=== PATIENT | male | born 1965 | race Caucasian/White ===

== ENCOUNTER 2020-08-17 01:49 | Day surgery (SDC) | payer OTHER ==
--- OUTSIDE RECORDS SUMMARY | 2020-08-17 13:54 | XMS REPORT | Continuity of Care Document ---
:1965 Author Organization [facility] t Address [address] [place] [address] Care Team Providers Name Role Phone CELIA Primary Care Physician Unavailable Luís VARGAS Attending Clinician CELIA Attending Clinician Unavailable CELIA Admitting Clinician Unavailable Problems This patient has no known problems. Allergies, Adverse Reactions, Alerts This patient has no known allergies or adverse reactions. Medications This patient has no known medications. Procedures This patient has no known procedures. Encounters Start End Encounter Admission Attending Care Care Encounter Source Date/Time Date/Time Type Type Clinicians Facility Department ID 2020-06-05 2020-06-05 Office LISET Staley [id number] 15:52:25 17:05:17 Visit Leslie Jurado [id number] Yvon [id number] Aqu[place] [id number] [facility] [address] Building 2018-02-02 2018-02-02 [facility] [id number] 19:12:00 19:12:00 [facility] Results Test Description Test Time Test Comments Results Result Comments Source Glycosylated Hemoglobin 2018-02-02 21:26:00 Test Item Value Reference Range Interpretation Comme nts HBA1c (test code = HBA1C) 7.4 % 4.8-5.9 H CBC with [id number] 20:56:00 Test Item Value Reference Range Interpretation Comments WBC (test code = WBC) 7.0 K/cumm 4.4-10.5 N RBC (test code = RBC) 5.41 M/cumm 4.10-5.70 N Hemoglobin (test code = HGB) 15.5 gm/dL 13.4-17.4 N Hematocrit (test code = HCT) 49.3 % 38.7-52.0 N MCV (test code = MCV) 91.1 fL 80-100 N MCH (test code = MCH) 28.6 pg 27.0-32.5 N MCHC (test code = MCHC) 31.4 g/dL 32.0-37.5 L RDW (test code = RDW) 13.2 % 11.5-14.5 N Platelet Count (test code = 221 K/cumm 140-440 N PLTCT) MPV (test code = MPV) 8.1 fL Diff Method (test code = DIFFM) Auto Neutrophil (test code = NEUT) 74.5 % 36-70 H Lymphocyte (test code = LYMPH) 14.8 % 12-44 N Monocyte (test code = MONO) 7.1 % 0-11 N Eosinophil (test code = EOS) 3.2 % 0-7 N Basophil (test code = BASO) 0.4 % 0-2 N Neutro Abs (test code = ANEUT) 5.2 K/cumm 1.6-7.4 N Lymph Abs (test code = ALYMPH) 1.0 K/cumm 0.5-4.6 N [place] Abs (test code = AMONO) 0.5 K/cumm 0.0-1.2 N Eos Abs (test code = AEOS) 0.23 K/cumm 0.00-0.74 N Baso Abs (test code = ABASO) 0.0 K/cumm 0.00-0.21 N Hypochromic (test code = HYPO) Slight Comprehensive Metabolic [id number] 20:51:00 Test Item Value Reference Range Interpretation Comments Sodium (test code = 144 mmol/L 135-145 N NA) Potassium (test 4.4 mmol/L 3.5-5.1 N code = K) Chloride (test code 100 mmol/L 98-105 N = CL) Carbon Dioxide 30 mmol/L 22-29 H (test code = CO2) Glucose (test code 77 mg/dL 70-115 N = GLU) Blood Urea Nitrogen 13 mg/dL 6-20 N (test code = BUN) Creatinine (test 0.9 mg/dL 0.7-1.2 N code = CREAT) Calcium (test code 9.6 mg/dL 8.3-10.5 N = CA) Prot Total (test 7.4 g/dL 6.4-8.3 N code = TP) Albumin (test code 4.6 g/dL 3.5-5.2 N = ALB) A/G Ratio (test 1.6 Ratio code = AGRATIO) Globulin (test code 2.8 2.9-3.1 L = GLOB) Bili Total (test 0.3 mg/dL 0.1-0.9 N code = TBIL) Alk Phos (test code 67 U/L 40-129 N = APHOS) AST (test code = 20 U/L 1-40 N AST) ALT (test code = 30 U/L 1-41 N ALT) BUN/Creatinine 14.4 Ratio (test code = BCRATIO) Anion Gap (test 14 mmol/L 7-16 N code = AGAP) Estimated GFR (test >60 eGFR (es timated code = GFR) mL/min/1.73m2 Glomerular Antoni tration Rate) is an est imated value,calculate d from the patient's s miki creatinine usin g the MDRD equation.I t is NOT the patient 's actual GFR. The eGFR provides a more clinicallyusefu l measure of kidn ey disease than se rum creatinine alone.This calculation flaco es sex and race into account, if the informationis provided. If th e race is not provided , and the patient isAfrican-Ameri can, multiply by 1.2 12. If sex is not prov ided, and thepatient is female, multipl y by 0.742. Results for patients <18 ye ars ofage have not been validated by th e MDRD study and shoul d be interpretedwith caution.eGFR Re sult Interpretation: eGFR > or = 60 is in t he Normal RangeeGF R < 60 may mean kidney diseaseeGFR < 1 5 may mean kidney failureRange s recommended by the National Kidney Foundation,http ://nkd ep.nih.gov Lipid [id number] 20:51:00 Test Item Value Reference Range Interpretation Comments Cholesterol (test 159 mg/dL 0-200 N code = CHOL) Triglycerides (test 125 mg/dL 9-200 N code = TRIG) HDL (test code = 48 mg/dL 40-60 N HDL) Chol/HDL (test code 3.3 Ratio 0.0-5.0 N = CHOLPHDL) LDL, Calculated 86 mg/dL 0-130 N (NOTE)RISK O F HEART (test code = LDLC) DISEASEPu blished by [place] Heart AssociationAnal yte Optim al Boderline Increased RiskC HOL <200 200-239 >240TRI G <150 150-199 >200HDL Male: >60 <40HDL Female: >60 <50 LDL < 100 130-15 9 >160 LDL NEAR OPTIMAL IS 100- 129 VLDL (test code = 25 mg/dL 5-40 N VLDL) LDL/HDL (test code = 2 LDLPHDL) Glycosylated [id number] 05:38:00 Test Item Value Reference Range Interpretation Comments HBA1c (test code = HBA1C) 6.3 % 4.8-5.9 H Lipid [id number] 23:07:00 Test Item Value Reference Range Interpretation Comments Cholesterol (test 144 mg/dL 0-200 N code = CHOL) Triglycerides (test 107 mg/dL 9-200 N code = TRIG) HDL (test code = 43 mg/dL 40-60 N HDL) Chol/HDL (test code 3.3 Ratio 0.0-5.0 N = CHOLPHDL) LDL, Calculated 80 mg/dL 0-130 N (NOTE)RISK O F HEART (test code = LDLC) DISEASEPu blished by [place] Heart AssociationAnal yte Optim al Boderline Increased RiskC HOL <200 200-239 >240TRI G <150 150-199 >200HDL Male: >60 <40HDL Female: >60 <50 LDL < 100 130-15 9 >160 LDL NEAR OPTIMAL IS 100- 129 VLDL (test code = 21 mg/dL 5-40 N VLDL) LDL/HDL (test code = 2 LDLPHDL) Comprehensive Metabolic [id number] 23:07:00 Test Item Value Reference Range Interpretation Comments Sodium (test code = 141 mmol/L 135-145 N NA) Potassium (test 4.0 mmol/L 3.5-5.1 N code = K) Chloride (test code 101 mmol/L 98-105 N = CL) Carbon Dioxide 31 mmol/L 22-29 H (test code = CO2) Glucose (test code 124 mg/dL 70-115 H = GLU) Blood Urea Nitrogen 14 mg/dL 6-20 N (test code = BUN) Creatinine (test 0.9 mg/dL 0.7-1.2 N code = CREAT) Calcium (test code 9.7 mg/dL 8.3-10.5 N = CA) Prot Total (test 7.0 g/dL 6.4-8.3 N code = TP) Albumin (test code 4.3 g/dL 3.5-5.2 N = ALB) A/G Ratio (test 1.6 Ratio code = AGRATIO) Globulin (test code 2.7 2.9-3.1 L = GLOB) Bili Total (test 0.3 mg/dL 0.1-0.9 N code = TBIL) Alk Phos (test code 70 U/L 40-129 N = APHOS) AST (test code = 15 U/L 1-40 N AST) ALT (test code = 23 U/L 1-41 N ALT) BUN/Creatinine 15.6 Ratio (test code = BCRATIO) Anion Gap (test 9 mmol/L 7-16 N code = AGAP) Estimated GFR (test >60 eGFR (es timated code = GFR) mL/min/1.73m2 Glomerular Antoni tration Rate) is an est imated value,calculate d from the patient's s miki creatinine usin g the MDRD equation.I t is NOT the patient 's actual GFR. The eGFR provides a more clinicallyusefu l measure of kidn ey disease than se rum creatinine alone.This calculation flaco es sex and race into account, if the informationis provided. If th e race is not provided , and the patient isAfrican-Ameri can, multiply by 1.2 12. If sex is not prov ided, and thepatient is female, multipl y by 0.742. Results for patients <18 ye ars ofage have not been validated by th e MDRD study and ese d be interpretedwith caution.eGFR Re sult Interpretation: eGFR > or = 60 is in t he Normal RangeeGF R < 60 may mean kidney diseaseeGFR < 1 5 may mean kidney failureRange s recommended by the National Kidney Foundation,http ://nkd ep.nih.gov CBC with [id number] 22:51:00 Test Item Value Reference Range Interpretation Comments WBC (test code = WBC) 6.4 K/cumm 4.4-10.5 N RBC (test code = RBC) 4.84 M/cumm 4.10-5.70 N Hemoglobin (test code = HGB) 14.0 gm/dL 13.4-17.4 N Hematocrit (test code = HCT) 43.9 % 38.7-52.0 N MCV (test code = MCV) 90.9 fL 80-100 N MCH (test code = MCH) 28.9 pg 27.0-32.5 N MCHC (test code = MCHC) 31.8 g/dL 32.0-37.5 L RDW (test code = RDW) 13.3 % 11.5-14.5 N Platelet Count (test code = 211 K/cumm 140-440 N PLTCT) MPV (test code = MPV) 8.7 fL Diff Method (test code = DIFFM) Auto Neutrophil (test code = NEUT) 72.6 % 36-70 H Lymphocyte (test code = LYMPH) 17.1 % 12-44 N Monocyte (test code = MONO) 6.3 % 0-11 N Eosinophil (test code = EOS) 3.6 % 0-7 N Basophil (test code = BASO) 0.3 % 0-2 N Neutro Abs (test code = ANEUT) 4.7 K/cumm 1.6-7.4 N Lymph Abs (test code = ALYMPH) 1.1 K/cumm 0.5-4.6 N [place] Abs (test code = AMONO) 0.4 K/cumm 0.0-1.2 N Eos Abs (test code = AEOS) 0.23 K/cumm 0.00-0.74 N Baso Abs (test code = ABASO) 0.0 K/cumm 0.00-0.21 N
--- OUTSIDE RECORDS SUMMARY | 2020-08-17 13:54 | XMS REPORT | Summary of Care ---
:1965 Author Organization [facility] Address [address] [place] [id number] Care Team Providers Name Role Phone Solis Patiño MD Primary Care Provider Reason for Visit Reason Comments Follow-up Diabetes Mellitus II Encounter Details Date Type Department Care Team Description 06/05/2020 Office Visit [facility] Leslie Staley MD Type 2 diabetes, uncontrolled, with neur opathy (Primary Dx); Endocrinology- [facility] Morbid o besity with BMI of 45.0-49.9, adult; [facility] Dyslipidemia; [address] [place] [address] Ess[address] hypertension; Drive, [address] [address] [place]urop[place], [place] [phone] [address] [phone] Allergies No Known Allergiesdocumented as of this encounter (statuses as of 06/29/2020) Medications Medication Sig Dispensed Refills Start End Date Status Date metoprolol Take 1 Tab by 0 Activ e tartrate mouth 2 (two) 3 (LOPRESSOR) 100 mg times daily. tabletIndications: Essential hypertension, benign blood sugar before meals. 0 Acti ve diagnostic 3 (FREESTYLE LITE STRIPS) stripIndications: Type II or unspecified type diabetes mellitus without mention of complication, uncontrolled aspirin 325 mg Take 325 mg by 0 Active tablet mouth daily. Amlodipine-Olmesar Take by 0 A ctive lindsay (KADEEM) 10-40 mouth. mg per tablet tadalafil (CIALIS) Take 5 mg by 0 Active 5 mg tablet mouth as needed for Erectile dysfunction. acetaminophen-code Take 1 tablet 0 Active ine 300-30 mg by mouth every tablet 6 (six) hours as needed for Pain (scale 1-3). Insulin [place], Use twice 200 Each 1 Act dana Disposable, (BD daily with 9 ULTRAFINE III MINI Victoza and PEN) 31 gauge x Cleo 01/01" NdleIndications: Type 2 diabetes, uncontrolled, with neuropathy atorvastatin 80 mg Take 1 tablet 90 tablet 3 Active tabletIndications: by mouth at 9 Dyslipidemia bedtime. pregabalin Take 1 capsule 180 capsule 1 Ac tive (LYRICA) 100 mg by mouth 2 0 capsuleIndications (two) times : Neuropathy, Type daily. 2 diabetes, uncontrolled, with neuropathy empagliflozin Take 1 tablet 90 tablet 3 Ac tive (JARDIANCE) 25 mg by mouth 0 TabIndications: daily. Type 2 diabetes, uncontrolled, with neuropathy insulin degludec inject 70 42 mL 1 Act dana (TRESIBA FLEXTOUCH Units under 0 U-200) 200 unit/mL the skin at (3 mL) bedtime. InPnIndications: Type 2 diabetes, uncontrolled, with neuropathy metformin ER 500 TAKE 1 TABLET 270 tablet 3 Active mg 24 hr 3 TIMES A 0 tabletIndications: DAYBEFORE Type 2 diabetes, MEALS uncontrolled, with neuropathy pioglitazone 15 mg Take 1 tablet 90 tablet 3 Active tabletIndications: by mouth 0 Type 2 diabetes, daily. uncontrolled, with neuropathy semaglutide inject 1 mg 9 mL 2 Active (OZEMPIC) 1 under the skin 0 mg/dose (2 mg/1.5 weekly. mL) PnIjIndications: Type 2 diabetes, uncontrolled, with neuropathy pioglitazone 15 mg Take 1 tablet 90 tablet 3 0 Discontinued tabletIndications: by mouth 0 20 ( Reorder) Type 2 diabetes, daily. uncontrolled, with neuropathy empagliflozin Take 1 tablet 90 tablet 3 06/05/20 Di scontinued (JARDIANCE) 25 mg by mouth 0 20 (R eorder) TabIndications: daily. Type 2 diabetes, uncontrolled, with neuropathy metformin ER 500 TAKE 1 TABLET 270 tablet 1 06/05/20 Discontinued mg 24 hr 3 TIMES A 0 20 (Reorder) tabletIndications: DAYBEFORE Type 2 diabetes, MEALS uncontrolled, with neuropathy insulin degludec inject 90 45 mL 1 06/05/20 Dis continued (TRESIBA FLEXTOUCH Units under 0 20 (Reorder) U-200) 200 unit/mL the skin at (3 mL) bedtime. InPnIndications: Type 2 diabetes, uncontrolled, with neuropathy semaglutide inject 1 mg 3 mL 3 06/05/20 Discon tinued (OZEMPIC) 1 under the skin 0 20 (Re order) mg/dose (2 mg/1.5 weekly. 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 documented as of this encounter Last Filed Vital Signs Vital Sign Reading Time Taken Comments Blood Pressure 149/88 06/05/2020 4:20 PM CDT Pulse 65 06/05/2020 4:20 PM CDT Temperature - - Respiratory Rate 16 06/05/2020 4:20 PM CDT Oxygen Saturation - - Inhaled Oxygen Concentration - - Weight 171 kg (377 lb) 06/05/2020 4:20 PM CDT Height 190.5 cm (6' 3") 06/05/2020 4:20 PM CDT Body Mass Index 47.12 06/05/2020 4:20 PM CDT documented in this encounter Patient Instructions Patient Leslie Rodriguez MD - 06/05/2020 4:00 PM CDTReduced Tresiba to 70 units daily , you can further reduce to 65 units daily in a week if sugar continue <100 consistently in a week Continue metformin, Jardiance, pioglitazone and resume Ozempic Target for sugar control Morning Fasting 90-130 2 hour after meal 120-180 documented in this encounter Progress Notes Leslie Staley MD - 06/05/2020 4:00 PM CDT chief complaint: Type 2 diabetes mellitus- follow up HPI Patient is a 55 year old /White male who is here today for Diabetes Mellitus Type 2. Patient's diabetes is complicated by atherogenic diet, diabetic ulcer/wound, hyperlipidemia, hypertension , macrovascular complications: S/P Cerebrovascular Accident, Coronary Artery Disease and S/P 4 VesselCoronary Artery Bypass Graft , neuropathy: Peripheral and lower extremity, obesity and retinopathy: nonproliferative. SONNY was in 10/2019 with A1C at 7.8% and was started on Ozempic 1mg weekly. Patient was advised to continue Actos 15 mg, Metformin ER 500 mg tid (c/o constipation), Toujeo 90 units at bedtime (usually takes 70 units), Jardiance 25 mg daily. Started Ozempic after SONNY, stopped for 2 months but is wanting to start again. He has not been taking victoza or Saxenda since due to insurance not covering. Glucose readings: 1x/day fasting AM Fastin-90 Diet: Chicken twice a week, shrimp, fish. No fried foods. Grilled. Exercise: Mildly active H/o CAD however no h/o CHF. States stress test and cath previously showed mild CAD and he was started on Plavix at that time. Follows up with his course developer in 2 weeks. Following issues managed by cardiology/PCP: Dyslipidemia: Takes Lipitor 80 mg daily Neuropathy: Takes gabapentin 400 mg tid. 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 Last HCT normal 03/2018 scanned DIABET[facility] HEALTH MAINTENANCE Last Ophthalmology visit was 02/2020, stable retinopathy with no active bleeding Patient on FRANKC/ARB therapy - Yes Patient on ASA therapy - Yes. Patient on Statin/Fibrate therapy - Yes. Flu shot: Yes received Patient instructed about daily feet exams, last sensation exam was 06/05/2020 Patient has received Nutrition/Diet/Diabetes Education on today. HISTORY Past Medical History: Diagnosis Date CAD (coronary artery disease) DM (diabetes mellitus) Dyslipidemia HTN (hypertension) Skin cancer of arm Stroke 2009 Past Surgical History: Procedure Laterality Date AMPUTATION TOE,I-P JT 2 and 3 toe CABG, ARTERIAL, FOUR+ 2014 Family History Problem Relation Age of Onset Other - see comments Unknown adopted Social History Socioeconomic History Marital status: Single Spouse name: Not on file Number of children: Not on file Years of education: Not on file Highest education level: Not on file Occupational History Not on file Social Needs Financial resource strain: Not on file Food insecurity Worry: Not on file Inability: Not on file Transportation needs Medical: Not on file Non-medical: Not on file Tobacco Use Smoking status: Light Tobacco Smoker Substance and Sexual Activity Alcohol use: Not on file Drug use: Not on file Sexual activity: Not on file Lifestyle Physical activity Days per week: Not on file Minutes per session: Not on file Stress: Not on file Relationships Social connections Talks on phone: Not on file Gets together: Not on file Attends anglican service: Not on file Active member of club or organization: Not on file Attends meetings of clubs or organizations: Not on file Relationship status: Not on file Intimate partner violence Fear of current or ex partner: Not on file Emotionally abused: Not on file Physically abused: Not on file Forced sexual activity: Not on file Other Topics Concern Not on file Social History Narrative Not on file REVIEW OF SYSTEMS Constitutional: +weight gain, denies fatigue and hair loss Eyes: denies blurry vision, denies diplopia and denies pain. Neck: denies pain, denies swollen glands Cardiovascular: denies chest pain , denies irregular pulse and denies palpitations. Respiratory: denies dyspnea on exertion and denies shortness of breath. Gastrointestinal: denies abdominal pain, denies constipation and denies diarrhea. Genitourinary: denies burning and denies dysuria. Musculoskeletal: denies back pain, denies muscle pain and denies weakness. Skin: denies dry skin and denies hair changes. Neuro: +numbness, denies tingling and denies tremor. Psych: negative. Endocrine: denies goiter, denies hair loss, denies intolerance to cold, denies intolerance to heat, denies polydipsia, denies polyphagia and denies polyuria. PHYSICAL EXAM BP (!) 149/88 | Pulse 65 | Resp 16 | Ht 6' 3" (1.905 m) | Wt 377 lb (171 kg) | BMI 47.12 kg/m General: alert, oriented times three, no apparent distress, appearing age appropriate. Skin: skin color and turgor are normal Head: normocephalic, no masses, lesions, tenderness or abnormalities. Eyes: anicteric sclera, pupils are equally round and reactive to light. Neck: +acanthosis nigricans Thyroid: normal size and consistency to palaption Lungs: good diaphragmatic excursion, lungs clear to auscultation bilaterally. Heart: regular rate and rhythm, no murmurs, gallops or rubs. Abdomen: abdomen soft, non-tender, normal active bowel sounds, + obese. Neuro: unremarkable without focal findings. Extremities/Musculoskeletal: no cyanosis, no edema . Sensory exam of the foot is abnormal. Monofilament exam with sensation Right: 0/5, Left: 0/5. Amputated 2nf and 3rd toe on left foot. Lesions absent. Ulcers Present Left Foot on side of 5th toe. Peripheral pulses present 1+. CREATININE (mg/dL) Date Value 11/16/2019 1.00 CHOL (mg/dL) Date Value 11/16/2019 186 HDL (mg/dL) Date Value 11/16/2019 52 LDL CHOL (mg/dL) Date Value 11/16/2019 111 TRIG (mg/dL) Date Value 11/16/2019 114 MICROAL/CR (mg/g of creatinine) Date Value 11/16/2019 5 POCT HBA1C (%) Date Value 11/16/2019 7.8 02/14/2019 7.7 ASSESSMENT 1. Type 2 diabetes, uncontrolled, with neuropathy -A1C (target=6-7%): 7.7(02/04) -->7.8(11/07) --> 6.6(06/07) -glucose range: AM fasting at target per patient, he may have post prandial hyperglycemia - without hypoglycemia -complication: neuropathy retinopathy nephropathy macrovascular: CAD CVA -medication limitation: Discussed recent reports of increased amputation with Invokana- . Discussed Jardiance, Farxiga and Invokana are all in the same class of SGLT2 inhibitors medications and increased amputation could be a class effect. Patient would like to continue Jardiance. -diet: semicompliant -exercise: limited by feet pain Plan -reinterated to check glucose BID alternating fasting and 2 hours post meals -urged compliance with diet/exercise - POCT HEMOGLOBIN A1C TEST - pioglitazone 15 mg tablet; Take 1 tablet by mouth daily. Dispense: 90 tablet; Refill: 3 - empagliflozin (JARDIANCE) 25 mg Tab; Take 1 tablet by mouth daily. Dispense: 90 tablet; Refill: 3 - metformin ER 500 mg 24 hr tablet; TAKE 1 TABLET 3 TIMES A DAYBEFORE MEALS Dispense: 270 tablet; Refill: 1 - pregabalin (LYRICA) 100 mg capsule; Take 1 capsule by mouth 2 (two) times daily. Dispense: 180 capsule; Refill: 1 - insulin degludec (TRESIBA FLEXTOUCH U-200) 200 unit/mL (3 mL) InPn; inject 70 Units under the skinat bedtime. Dispense: 45 mL; Refill: 1 - semaglutide (OZEMPIC) 1 mg/dose (2 mg/1.5 mL) PnIj; inject 1 mg under the skin weekly. Dispense: 3 mL; Refill: 3 PATIENT INSTRUCTIONS Reduced Tresiba to 70 units daily, you can further reduce to 65 units daily in a week if sugar continue <100 consistently in a week Continue metformin, Jardiance, pioglitazone and resume Ozempic Target for sugar control Morning Fasting 90-130 2 hour after meal 120-180 2. Morbid obesity with BMI of 45.0-49.9, adult Comment: H/o CAD- avoid Phentermine Side effects with COntrave Consider belviq in future Plan: Restart ozempic as above 3. Neuropathy - pregabalin (LYRICA) 100 mg capsule; Take 1 capsule by mouth 2 (two) times daily. Dispense: 180 capsule; Refill: 1 4. Dyslipidemia Comment: at goal. Managed by cardiology Plan: atorvastatin 80 mg tablet 5. Essential hypertension Followed by cardiology Patient seen and discussed with Dr. Leslie Saenz [facility] PA-S2 I personally performed and/or ordered the services described in this documentation made by Ms SaenzPA student in my presence, and it is both accurate and complete. All medical record entries made byMs Saenz were at my direction and personally dictated by me. I have reviewed the chart and made mod ification. I agree that the record accurately reflects my personal performance of the history, physical exam, assessment and plan. Leslie Staley MD Division of Endocrinology and Metabolism Jewell Connelly LVN - 06/05/2020 4:00 PM CDT Last Two A1C Results ([facility], POCT, [facility]) Recent Labs 11/16/19 06/05/20 [id number] 7.8 6.6* Kai Felizectronically signed by Jewell Bradley LVN at 06/29/2020 1:03 AM CDTdocumented in this encounter Plan of Treatment Date Type Specialty Care Team Description 11/06/2020 Office Visit Endocrinology Diabetes & Willis Staley MD Metabolism [facility] [place], [place] [id number] Health Maintenance Due Date Last Done Comments HEPATITIS C (HCV) SCREEN 1965 Depression Screening 1975 DTaP,Tdap,and Td Vaccines (1 1982 - Tdap) COLON CANCER SCREENING 2013 ANNUAL FIT/FOBT COLON CANCER SCREENING FIT 2013 DNA EVERY 3 YEARS COLON CANCER SCREENING 2013 SIGMOIDOSCOPY EVERY 5 YEARS COLONOSCOPY 2013 Colorectal Cancer Screening 2013 Zoster Recombinant Vaccine 2013 (SHINGRIX) (1 of 2) INFLUENZA VACCINE (#1) 2020 CREATININE (SERUM) 11/16/2020 11/16/2019 LDL-C 11/16/2020 11/16/2019 URINE MICROALBUMIN 11/16/2020 11/16/2019 HgA1C 12/06/2020 06/05/2020, 11/16/2019, 02/14/2019, Additional history exists EYE EXAM 03/15/2021 03/15/2020 FOOT EXAM 06/05/2021 06/05/2020, 06/05/2020, 11/16/2019, Additional history exists PNEUMOCOCCAL 0-64 YEARS Aged Out No longe r eligible COMBINED SERIES based on patient 's age to complete this topic documented as of this encounter Procedures Procedure Name Priority Date/Time Associated Diagnosis Comme nts POCT HEMOGLOBIN A1C Routine 06/05/2020 Type 2 diabetes, Resu lts for this TEST uncontrolled, with procedure are in the neuropathy results section . documented in this encounter Results POCT HEMOGLOBIN A1C TEST (06/05/2020) Pathologist Sig nature POCT HBA1C 6.6 (A) 4 - 6 % Specimen Blood - CAPILLARY documented in this encounter Visit Diagnoses Diagnosis Type 2 diabetes, uncontrolled, with neur opathy - Primary Type II or unspecified type diabetes rickie litus with neurological manifestations, uncontrolled Morbid obesity with BMI of 45.0-49.9, ad ult Dyslipidemia Other and unspecified hyperlipidemia Essential hypertension Unspecified essential hypertension Neuropathy Mononeuritis of unspecified site documented in this encounter Guarantor Name Account Type Relation to Date of Phone Bill ing Patient Address Ana Kauffman Personal/Family Self [phone] (Home) [place] [phone] (Work) documented as of this encounter
--- OUTSIDE RECORDS SUMMARY | 2020-08-17 13:54 | XMS REPORT | Summary of Care ---
:1965 Author Organization [facility] Address [address] [place] [address] Care Team Providers Name Role Phone Solis Patiño MD Primary Care Provider Reason for Visit Reason Comments Follow-up Diabetes Mellitus II Encounter Details Date Type Department Care Team Description 06/05/2020 Office Visit [facility] Leslie Staley MD Type 2 diabetes, uncontrolled, with neur opathy (Primary Dx); Endocrinology- [facility]0 [facility] Morbid o besity with BMI of 45.0-49.9, adult; [facility] Dyslipidemia; [address] [place] [address] Essenti al hypertension; Drive, [address] [address] Neurop[place], [place] [phone] [address] [phone] Allergies No Known Allergiesdocumented as of this [...] as needed for Pain (scale 1-3). Insulin [place], Use twice 200 Each 1 Act dana [...] compli cations 10/31/2008 Overview: ICD10 Diagnosis Term [facility] Nurse Utility documented as of this encounter (statuses [...] at that time. Follows up with his fringe maker in 2 weeks. Following issues managed by [...] retinopathy with no active bleeding Patient on FRANCK/ARB therapy - Yes Patient on ASA therapy [...] file Gets together: Not on file Attends hinduism service: Not on file Active member of [...] seen and discussed with Dr. Leslie Saenz [facility] PA-S2 I personally performed and/or ordered [...] MD Division of Endocrinology and Metabolism Jewell Connelyl LVN - 06/05/2020 4:00 PM CDT Last Two A1C Results ([facility], POCT, [facility]) Recent Labs 11/16/19 06/05/20 [id number] 7.8 6.6* Kai Felizectronically signed by Jewell Bradley LVN at 06/29/2020 1:03 AM CDTdocumented in this encounter Plan of Treatment Date Type Specialty Care Team Description 11/06/2020 Office Visit Endocrinology Diabetes & Willis Staley MD Metabolism [facility] [place], [place] [address] Health Maintenance Due Date Last Done Comments [...] [phone] (Home) [place] [phone] (Work) documented as of this encounter
[2020-08-17 14:49] LABS: Basophils % 0.8 % (0-1.3); Hematocrit 43.4 % (39.6-49.0); Lymphocytes % 16.3 % (15.3-44.8); MPV 8.1 fL (7.6-11.3); RBC Red Blood Cell Count 5.03 M/uL (4.33-5.43)
--- NOTE | 2020-08-17 14:51 | RAD REPORT ---
EXAM DESCRIPTION: Heaven aTng (2 Views)08/17/2020 2:27 pm CLINICAL HISTORY: Preop for leg debridement. COMPARISON: 2017 FINDINGS: The lungs appear clear of acute infiltrate. The heart is normal size. Postsurgical changes involve the chest. IMPRESSION: No acute abnormalities displayed
[2020-08-17 14:52] LABS: Protime INR 0.97
[2020-08-17] MEDS ORDERED: NA CHLORIDE 0.9% 1,000 ML ONE (14:58)
[2020-08-17] MEDS ORDERED: propofoL 200 MG/20 ML VIAL IV ONE (15:19)
[2020-08-17] MEDS ORDERED: FENTANYL CITR 100 MCG/2 ML ONE (15:20)
[2020-08-17] MEDS ORDERED: MIDAZOLAM HCL 2 MG/2 ML INJ ONE (15:21)
[2020-08-17] MEDS ORDERED: LIDOCAINE 2% MPF 5 ML VIAL ONE (15:21)
[2020-08-17] MEDS ORDERED: CEFAZOLIN/SWI 1gm 1 GM/10 ML SYR ONE (15:39)
--- NOTE | 2020-08-17 15:40 | P.BOP ---
Preoperative diagnosis: infected leg hematoma with abscess Postoperative diagnosis: same Primary procedure: Evacuation of infected hematoma with drainage of abscess Estimated blood loss: <10cc Specimen: culture Findings: as above Anesthesia: General Drain(s): Other (delores drain) Transferred to: Recovery Room Condition: Good
[2020-08-17] MEDS ORDERED: ONDANSETRON 4 MG/2 ML VIAL ONE (15:50)
[2020-08-17] MEDS ORDERED: EPHEDRINE SULF 50 MG/ML VIAL ONE (15:55)
[2020-08-17] MEDS ORDERED: NS 0.9% VIAL 10 ML ONE (16:00)
[2020-08-17] MEDS ORDERED: Phenylephrine HCl 10 MG/ML 1 ML VIAL ONE (16:00)
[2020-08-17] MEDS ORDERED: MORPHINE 4 MG/ML SYR ONE (16:24)
[2020-08-17] MEDS ORDERED: TRAMADOL HCL 50 MG TAB ONE (17:00)
[2020-08-17 17:20] VITALS: BP 124/84; TEMP 98.4; O2SAT 96
--- NOTE | 2020-08-17 23:30 | OP ---
Date of Procedure: 08/17/2020 Surgeon: Jose Stiles MD Preoperative Diagnoses: Infected left leg hematoma, status post contusion with cellulitis and absces s. Postoperative Diagnoses: Infected left leg hematoma, status post contusion with cellulitis and absce ss. Procedure: Evacuation of infected hematoma with drainage of an abscess, left leg. Estimated Blood Loss: Less than 10 cc plus the patient has about 50 cc of clotting blood in the area . Specimens: Cultures were obtained. Drains: Brit was placed. Indications: This is the case of a 55-year-old patient with history of blood thinners, his leg devel oped large hematoma. The patient has history of venous stasis disease, so the area had some pressure on it, now is read, diagnosed with infected hematoma and he was booked in OR immediately for drainag e. Benefits, alternatives, and risks were fully explained, which include, but not limited to infecti on, bleeding, damage to adjacent structures, anesthesia complication, nonhealing wound, SC, and even . He also understands this may not relieve symptoms. He might need more than one surgical inte rvention. He understood and signed a consent. Procedure In Detail: The area of concern was marked by me and the patient in the holding room. The patient was brought to the operating room and placed in supine position. Anesthesia was done without complication. Left leg was prepped and draped in sterile fashion. Time-out was called. Local anes thesia was applied followed by sharp incision of the skin. Immediately, we found a cavity with infec karlie hematoma, so we took cultures of that area, irrigated the area profusely, obtained hemostasis and then put a Brit over the area and closed with sterile dressings on top. We put an Dre wrap from the foot all the way down to the below the knee. The patient tolerated the procedure well. The haresh ent in his way to recovery in stable condition. The area of concern is about 10 x 10 cm. Disposition: Home. Plan: Keep this intact until Thursday. On Thursday, he may remove the outer dressings and pull the Penr ose drains out and then immediately replace it with 4 x 4 and the Dre wrap from the foot all the way to the knee. The patient's family will help him with that. Medications: The patient has some Ultram. We are going to refill the Ultram once again for pain con trol. We asked him to have the leg elevated. The patient is already on antibiotics. ALONSO/JULES Voice ID: [id number] Report ID: [id number]
== END 2020-08-17 17:15 | disposition home or self-care (01) ==
LOC: OR 01:49
PROVIDERS: ATTEND Surgery
PROC: 0H9LXZX Drainage of Left Lower Leg Skin, External Approach, Diagnostic (ICD-10-PCS; principal; 2020-08-17 16:00)
DX: S80.12XA Contusion of left lower leg, initial encounter (principal); L03.116 Cellulitis of left lower limb; L02.416 Cutaneous abscess of left lower limb; E11.9 Type 2 diabetes mellitus without complications; I10 Essential (primary) hypertension; E66.01 Morbid (severe) obesity due to excess calories; E78.00 Pure hypercholesterolemia, unspecified; I51.9 Heart disease, unspecified; L08.9 Local infection of the skin and subcutaneous tissue, unspecified
CPT/HCPCS: 93005; 87070; 85025; 36415; 87205; 85610; 82947 ×2; 85730; 87075; 71046; 10140; J2704; J2370; J2250; J3010; J0690; J7030; J2405